=== PATIENT | male | born 1965 | race Native Hawaiian/Other Pacific Islander ===

== ENCOUNTER 2018-02-18 13:37 | Emergency (ER) | payer OTHER ==
[~2018-02-18] VITALS: Ht 175.3 cm; Wt 99.8 kg
[2018-02-18 13:50] VITALS: TEMP 97.8
[2018-02-18 15:10] VITALS: BP 134/92
== END 2018-02-18 15:10 | disposition home or self-care (01) ==
LOC: ED 13:37
DX: S20.211A Contusion of right front wall of thorax, initial encounter (principal); W22.8XXA Striking against or struck by other objects, initial encounter; Y92.89 Other specified places as the place of occurrence of the external cause
CPT/HCPCS: 99283

== ENCOUNTER 2018-05-19 15:49 | Emergency (ER) | payer OTHER ==
[~2018-05-19] VITALS: Ht 175.3 cm; Wt 93.0 kg
[2018-05-19 15:45] VITALS: TEMP 98.5
[2018-05-19 16:42] LABS: PLATELET COUNT 69 K/uL (142-355)
[2018-05-19 16:52] LABS: POTASSIUM 3.7 mmol/L (3.6-5.2)
[2018-05-19 17:26] VITALS: BP 142/88
== END 2018-05-19 17:26 | disposition home or self-care (01) ==
LOC: ED 15:49
DX: N20.1 Calculus of ureter (principal); N23 Unspecified renal colic
CPT/HCPCS: 36415; 80053; 85027; 96365; 96374; 96375; 99284; J1885; J2405

== ENCOUNTER 2018-08-02 13:39 | Emergency (ER) | payer OTHER ==
[~2018-08-02] VITALS: Ht 175.3 cm; Wt 93.0 kg
[2018-08-02 13:55] VITALS: BP 145/98; TEMP 97.9
== END 2018-08-02 14:12 | disposition left against medical advice (07) ==
LOC: ED 13:39
DX: R19.5 Other fecal abnormalities (principal); R39.198 Other difficulties with micturition; R53.1 Weakness
CPT/HCPCS: 99281

== ENCOUNTER 2019-11-13 12:02 | Observation (INO) | payer OTHER ==
[~2019-11-13] VITALS: Ht 172.7 cm; Wt 87.1 kg
[2019-11-13 12:09] VITALS: BP 145/80; TEMP 98.2
[2019-11-13 12:37] LABS: PLATELET COUNT 93 K/uL (142-355)
[2019-11-13 12:53] LABS: POTASSIUM 5.3 mmol/L (3.6-5.2)
[2019-11-13 15:21] VITALS: BP 144/85; TEMP 98.1; Ht 172.7 cm; Wt 87.1 kg
[2019-11-13 16:00] VITALS: BP 144/85; TEMP 98.1
[2019-11-13 19:55] VITALS: BP 139/78; TEMP 98.5
[2019-11-13 23:57] VITALS: BP 110/68; TEMP 98
[2019-11-14 04:00] VITALS: BP 105/64; TEMP 98
[2019-11-14 05:18] LABS: PLATELET COUNT 80 K/uL (142-355)
[2019-11-14 05:27] LABS: POTASSIUM 3.4 mmol/L (3.6-5.2)
[2019-11-14 08:00] VITALS: BP 121/82; TEMP 97.4
[2019-11-14] MEDS ORDERED: AMOX500T5 PO (11:35)
[2019-11-14] MEDS ORDERED: INSU300I SC (11:39)
[2019-11-14] MEDS ORDERED: METF500T PO (11:41)
[2019-11-14 12:00] VITALS: BP 117/77; TEMP 97.6
== END 2019-11-14 13:15 | disposition home or self-care (01) ==
LOC: ED 12:02 → MED/SURG 14:45
PROVIDERS: Internal Medicine; ADMIT Family Medicine
DX: E11.65 Type 2 diabetes mellitus with hyperglycemia (principal); N39.0 Urinary tract infection, site not specified; Z91.19 Patient's noncompliance with other medical treatment and regimen; Z72.0 Tobacco use
CPT/HCPCS: 36415; 80048; 80053; 81000; 82948; 82962; 83036; 85027; 87077; 87086; 87088; 87185; 96360; 96361; 96365; 96367; 96372; 96375; 99220; 99284; G0378; J0696; J1815; J1956

== ENCOUNTER 2020-04-25 15:35 | Emergency (ER) | payer OTHER ==
[~2020-04-25] VITALS: Ht 172.7 cm; Wt 77.1 kg
[~2020-04-25 15:35] MED LIST: AMOX500T5 PO; INSU300I SC; METF500T PO
[2020-04-25 15:51] VITALS: BP 136/89; TEMP 99.4
== END 2020-04-25 16:51 | disposition home or self-care (01) ==
LOC: ED 15:35
DX: N39.0 Urinary tract infection, site not specified (principal); N48.1 Balanitis
CPT/HCPCS: 81000; 99282

== ENCOUNTER 2020-12-30 13:37 | Emergency (ER) | payer OTHER ==
[~2020-12-30] VITALS: Ht 172.7 cm; Wt 75.3 kg
[2020-12-30 14:24] LABS: PLATELET COUNT 90 K/uL (142-355)
[2020-12-30 14:33] LABS: POTASSIUM 4.7 mmol/L (3.6-5.2)
[2020-12-30 16:20] LABS: POTASSIUM 4.7 mmol/L (3.6-5.2)
[2020-12-30 19:30] VITALS: BP 133/74; TEMP 97.8
== END 2020-12-30 19:30 | disposition home or self-care (01) ==
LOC: ED 13:37
PROVIDERS: Family Medicine
DX: E11.65 Type 2 diabetes mellitus with hyperglycemia (principal); E87.1 Hypo-osmolality and hyponatremia; N39.0 Urinary tract infection, site not specified
CPT/HCPCS: 36415; 80048; 80053; 80307; 81000; 81002; 82947; 82948; 85027; 87077; 87086; 87088; 87186; 96360; 96361; 96365; 96375; 96376; 99284; J0696; J1815

== ENCOUNTER 2021-06-16 09:05 | Outpatient (CLI) | payer OTHER | END 2021-06-16 19:57 | disposition home or self-care (01) | LOC: MRI 09:05 | PROVIDERS: ATTEND Urology | DX: D41.01 Neoplasm of uncertain behavior of right kidney (principal) | CPT/HCPCS: 36415; 82565; 84520; A9576 ==

== ENCOUNTER 2021-06-27 03:15 | Emergency (ER) | payer OTHER ==
[~2021-06-27] VITALS: Ht 172.7 cm; Wt 75.3 kg
[2021-06-27 03:40] VITALS: TEMP 97.6
[2021-06-27 04:40] LABS: PLATELET COUNT 84 K/uL (142-355)
[2021-06-27 05:56] LABS: POTASSIUM 4.1 mmol/L (3.6-5.2)
[2021-06-27 07:14] VITALS: BP 172/97
== END 2021-06-27 07:15 | disposition home or self-care (01) ==
LOC: ED 03:15
PROVIDERS: Emergency Medicine Emergency Medical Services
DX: G89.3 Neoplasm related pain (acute) (chronic) (principal); C64.1 Malignant neoplasm of right kidney, except renal pelvis
CPT/HCPCS: 36415; 80053; 81000; 85027; 96360; 96374; 96375; 99284; J1170; J1885

== ENCOUNTER 2021-07-24 20:43 | Emergency (ER) | payer OTHER ==
[~2021-07-24] VITALS: Ht 172.7 cm; Wt 75.3 kg
[2021-07-24 22:39] LABS: PLATELET COUNT 83 K/uL (142-355)
[2021-07-24 23:14] LABS: POTASSIUM 3.8 mmol/L (3.6-5.2)
[2021-07-25 00:03] VITALS: BP 165/85; TEMP 98.3
== END 2021-07-25 00:15 | disposition home or self-care (01) ==
LOC: ED 20:43
PROVIDERS: Emergency Medicine Emergency Medical Services
DX: C64.1 Malignant neoplasm of right kidney, except renal pelvis (principal)
CPT/HCPCS: 80053; 83690; 85027; 96360; 96375; 99284; J1170

== ENCOUNTER 2021-10-12 04:37 | Emergency (ER) | payer OTHER ==
[~2021-10-12] VITALS: Ht 172.7 cm; Wt 81.6 kg
[2021-10-12 04:41] VITALS: TEMP 97.7
[2021-10-12 05:17] LABS: PLATELET COUNT 119 K/uL (142-355)
[2021-10-12 05:27] LABS: POTASSIUM 3.9 mmol/L (3.6-5.2)
[2021-10-12 05:41] LABS: PARTIAL THROMBOPLASTIN TIME 26.5 SECONDS (24.5-33.6)
[2021-10-12 13:30] VITALS: BP 130/82
== END 2021-10-12 14:00 | disposition still patient (30) ==
LOC: ED 04:37
PROVIDERS: Hospitalist
PROC: 0T9B70Z Drainage of Bladder with Drainage Device, Via Natural or Artificial Opening (ICD-10-PCS; principal; 2021-10-12)
DX: R10.84 Generalized abdominal pain (principal); R11.2 Nausea with vomiting, unspecified; E11.65 Type 2 diabetes mellitus with hyperglycemia; C64.1 Malignant neoplasm of right kidney, except renal pelvis; Z90.5 Acquired absence of kidney; N39.0 Urinary tract infection, site not specified; D64.89 Other specified anemias; E87.1 Hypo-osmolality and hyponatremia; Z11.52 Encounter for screening for COVID-19
CPT/HCPCS: 36415; 51702; 80053; 81000; 83605; 83690; 85027; 85610; 85730; 87040; 87077; 87086; 87088; 87186; 87635; 96360; 96361; 96365; 96366; 96375; 96376; 99284; J1170; J1815; J1956; J2405; J3490; Q9963; U0003

== ENCOUNTER 2021-10-26 09:55 | Outpatient (CLI) | payer OTHER ==
[2021-10-26 10:34] LABS: PLATELET COUNT 89 K/uL (142-355)
[2021-10-26 10:48] LABS: POTASSIUM 4.3 mmol/L (3.6-5.2)
== END 2021-10-26 19:23 | disposition home or self-care (01) ==
LOC: LABW 09:55
PROVIDERS: ATTEND Internal Medicine
DX: E11.9 Type 2 diabetes mellitus without complications (principal); C64.1 Malignant neoplasm of right kidney, except renal pelvis; Z79.899 Other long term (current) drug therapy
CPT/HCPCS: 36415; 80053; 80061; 80307; 81000; 82043; 83036; 84439; 84443; 85027

== ENCOUNTER 2022-11-22 11:25 | Emergency (ER) | payer OTHER ==
[~2022-11-22] VITALS: Ht 172.7 cm; Wt 86.2 kg
[2022-11-22 11:25] VITALS: TEMP 99.1
[2022-11-22 12:08] LABS: PLATELET COUNT 89 K/uL (142-355)
[2022-11-22 12:16] LABS: POTASSIUM 4.7 mmol/L (3.6-5.2)
[2022-11-22 15:55] VITALS: BP 126/82
== END 2022-11-22 15:55 | disposition home or self-care (01) ==
LOC: ED 11:25
PROVIDERS: Emergency Medicine
DX: N39.0 Urinary tract infection, site not specified (principal); G89.4 Chronic pain syndrome
CPT/HCPCS: 80053; 81000; 84484; 85027; 87077; 87086; 87088; 87186; 93005; 96360; 96374; 96376; 99283; 99284; J2270; J2405

== ENCOUNTER 2022-11-29 11:04 | Outpatient (CLI) | payer OTHER ==
[~2022-11-29] VITALS: Ht 172.7 cm; Wt 86.2 kg
[2022-11-29 11:10] VITALS: BP 107/68; TEMP 98.2
[2022-11-29 11:55] VITALS: BP 110/72; TEMP 98
[2022-11-29 12:49] LABS: PLATELET COUNT 87 K/uL (142-355)
== END 2022-11-29 18:58 | disposition home or self-care (01) ==
LOC: RAD 11:04 → LABW 11:04 → INF 11:04
PROVIDERS: Internal Medicine; ATTEND Internal Medicine
DX: K74.69 Other cirrhosis of liver (principal); R18.8 Other ascites; Z79.899 Other long term (current) drug therapy
CPT/HCPCS: 36415; 83036; 85027; 96365; J1335

== ENCOUNTER 2022-11-30 11:05 | Outpatient (CLI) | payer OTHER ==
[~2022-11-30] VITALS: Ht 172.7 cm; Wt 86.2 kg
[2022-11-30 11:10] VITALS: BP 136/77; TEMP 97.5
[2022-11-30 12:06] VITALS: BP 120/76; TEMP 97.6
== END 2022-11-30 19:16 | disposition home or self-care (01) ==
LOC: INF 11:05
PROVIDERS: ATTEND Internal Medicine
DX: N39.0 Urinary tract infection, site not specified (principal); B96.29 Other Escherichia coli [E. coli] as the cause of diseases classified elsewhere
CPT/HCPCS: 96365; J1335

== ENCOUNTER 2022-12-01 10:51 | Outpatient (CLI) | payer OTHER ==
[~2022-12-01] VITALS: Ht 30.5 cm; Wt 0.5 kg
[2022-12-01 10:55] VITALS: BP 123/73; TEMP 97.6
[2022-12-01 12:30] VITALS: BP 127/74; TEMP 98
== END 2022-12-01 21:43 | disposition home or self-care (01) ==
LOC: INF 10:51
PROVIDERS: ATTEND Internal Medicine
DX: N39.0 Urinary tract infection, site not specified (principal); B96.29 Other Escherichia coli [E. coli] as the cause of diseases classified elsewhere
CPT/HCPCS: 96365; J1335

== ENCOUNTER 2022-12-02 10:52 | Outpatient (CLI) | payer OTHER ==
[~2022-12-02] VITALS: Ht 30.5 cm; Wt 0.5 kg
[2022-12-02 11:00] VITALS: BP 149/73; TEMP 98
[2022-12-02 11:40] VITALS: BP 157/79; TEMP 98.6
== END 2022-12-02 19:08 | disposition home or self-care (01) ==
LOC: INF 10:52
PROVIDERS: ATTEND Internal Medicine
DX: N39.0 Urinary tract infection, site not specified (principal); B96.29 Other Escherichia coli [E. coli] as the cause of diseases classified elsewhere
CPT/HCPCS: 96365; J1335

== ENCOUNTER 2022-12-06 08:04 | Outpatient (CLI) | payer OTHER ==
[~2022-12-06] VITALS: Ht 30.5 cm; Wt 0.5 kg
[2022-12-06 08:05] VITALS: BP 113/64; TEMP 98.5
== END 2022-12-06 19:32 | disposition home or self-care (01) ==
LOC: INF 08:04
PROVIDERS: ATTEND Internal Medicine
DX: N39.0 Urinary tract infection, site not specified (principal); B96.29 Other Escherichia coli [E. coli] as the cause of diseases classified elsewhere
CPT/HCPCS: 96365; 99211; J1335

== ENCOUNTER 2022-12-07 10:37 | Outpatient (CLI) | payer OTHER ==
[~2022-12-07] VITALS: Ht 172.7 cm; Wt 86.2 kg
[2022-12-07 10:44] VITALS: BP 120/67; TEMP 97.4
[2022-12-07 11:50] VITALS: BP 116/64; TEMP 98.2
== END 2022-12-07 19:30 | disposition home or self-care (01) ==
LOC: INF 10:37
PROVIDERS: ATTEND Internal Medicine
DX: N39.0 Urinary tract infection, site not specified (principal); B96.29 Other Escherichia coli [E. coli] as the cause of diseases classified elsewhere
CPT/HCPCS: 96365; J1335

== ENCOUNTER 2022-12-08 10:48 | Outpatient (CLI) | payer OTHER ==
[~2022-12-08] VITALS: Ht 172.7 cm; Wt 86.2 kg
== END 2022-12-08 19:03 | disposition home or self-care (01) ==
LOC: INF 10:48
PROVIDERS: ATTEND Internal Medicine
DX: N39.0 Urinary tract infection, site not specified (principal); B96.29 Other Escherichia coli [E. coli] as the cause of diseases classified elsewhere
CPT/HCPCS: 96365; J1335

== ENCOUNTER 2022-12-09 10:47 | Outpatient (CLI) | payer OTHER ==
[~2022-12-09] VITALS: Ht 172.7 cm; Wt 86.2 kg
== END 2022-12-09 20:23 | disposition home or self-care (01) ==
LOC: INF 10:47
PROVIDERS: ATTEND Hospitalist
DX: N39.0 Urinary tract infection, site not specified (principal); B96.29 Other Escherichia coli [E. coli] as the cause of diseases classified elsewhere
CPT/HCPCS: 96365

== ENCOUNTER 2022-12-10 10:28 | Outpatient (CLI) | payer OTHER ==
[~2022-12-10] VITALS: Ht 175.3 cm; Wt 86.2 kg
[2022-12-10 10:34] VITALS: BP 113/70; TEMP 97.9
[2022-12-10 12:15] VITALS: BP 109/60; TEMP 97.6
== END 2022-12-10 19:04 | disposition home or self-care (01) ==
LOC: INF 10:28
PROVIDERS: ATTEND Internal Medicine
DX: N39.0 Urinary tract infection, site not specified (principal); B96.29 Other Escherichia coli [E. coli] as the cause of diseases classified elsewhere
CPT/HCPCS: 96365; J1335

== ENCOUNTER 2022-12-11 08:06 | Outpatient (CLI) | payer OTHER ==
[~2022-12-11] VITALS: Ht 175.3 cm; Wt 86.2 kg
[2022-12-11 08:09] VITALS: BP 116/64; TEMP 97.7
== END 2022-12-11 19:18 | disposition home or self-care (01) ==
LOC: INF 08:06
PROVIDERS: ATTEND Internal Medicine
DX: N39.0 Urinary tract infection, site not specified (principal); B96.29 Other Escherichia coli [E. coli] as the cause of diseases classified elsewhere
CPT/HCPCS: 96365; J1335